=== PATIENT | female | born 1980 | race Hispanic/Latino ===

== ENCOUNTER 2017-12-20 02:27 | Observation (INO) | payer MEDICAID ==
[~2017-12-20] VITALS: Ht 160 cm; Wt 61.2 kg
[2017-12-20 02:45] VITALS: BP 119/75
[2017-12-20] MEDS ORDERED: LACTATED RINGERS 1000ML IV PRN (02:45)
[2017-12-20 03:12] LABS: APPEARANCE,URINE Clear (CLEAR); BILIRUBIN,URINE Negative (NEGATIVE); COLOR,URINE Yellow (YELLOW); GLUCOSE, URINE (UA) Negative (NEGATIVE); KETONES,URINE Negative (NEGATIVE); LEUKOCYTE ESTERASE ,URINE Negative (NEGATIVE); NITRATE,URINE Negative (NEGATIVE); OCCULT BLOOD,URINE Negative (NEGATIVE); PH,URINE 6.5 (5.0-8.0); PROTEIN,URINE Negative (NEGATIVE); UROBILINOGEN,URINE 0.2 mg/dL (0.2-1.0)
[2017-12-20] MEDS ORDERED: PREN-196 PO (03:23)
[2017-12-20] MEDS ORDERED: DIPH25 PO (03:23)
[2017-12-20] MEDS ORDERED: ACET-2743 PO (03:23)
== END 2017-12-20 03:45 | disposition home or self-care (01) ==
LOC: EDH 02:27 → LDH 02:28
PROVIDERS: ADMIT Obstetrics & Gynecology; ATTEND Obstetrics & Gynecology
DX: O26.893 Other specified pregnancy related conditions, third trimester (principal); R07.89 Other chest pain; Z3A.36 36 weeks gestation of pregnancy
CPT/HCPCS: 81003; 99285; G0378

== ENCOUNTER 2018-01-08 20:21 | Inpatient (IN) | payer MEDICAID ==
[~2018-01-08] VITALS: Ht 160 cm; Wt 62.6 kg
[~2018-01-08 20:21] MED LIST: ACET-2743 PO; DIPH25 PO; PREN-196 PO
[2018-01-08] MEDS ORDERED: OXYTOCIN-LR 20 UNITS/1000 ML 1,000 ML IV SCH (21:15)
[2018-01-08 21:24] LABS: APPEARANCE,URINE Clear (CLEAR); BILIRUBIN,URINE Negative (NEGATIVE); COLOR,URINE Yellow (YELLOW); GLUCOSE, URINE (UA) Negative (NEGATIVE); KETONES,URINE Negative (NEGATIVE); LEUKOCYTE ESTERASE ,URINE Negative (NEGATIVE); NITRATE,URINE Negative (NEGATIVE); OCCULT BLOOD,URINE Negative (NEGATIVE); PROTEIN,URINE Negative (NEGATIVE)
[2018-01-08] MEDS ORDERED: FLU VACC QS2017-18 36MOS UP/PF 60 MCG/0.5 ML ML IM ONE (22:00)
[2018-01-08 22:01] LABS: HEMATOCRIT 36.7 % (36-48); MEAN CORPUSCULAR HEMOGLOBIN 32.9 pg (27.0-33.0); MEAN CORPUSCULAR HGB CONC 35.8 g/dL (32.0-36.0); NUCLEATED RED BLOOD CELLS 0.1 % (0.0-0.19); PLATELET COUNT (AUTO) 150 K/uL (130-400); RED BLOOD CELL COUNT(AUTO) 3.99 MIL/uL (4.00-5.50); RED CELL DISTRIBUTION WIDTH 14.1 % (11.0-15.5); WHITE BLOOD COUNT (AUTO) 6.4 K/uL (4.8-10.8)
[2018-01-08] MEDS: LACTATED RINGERS 1000ML 1,000 ML IV PRN (22:14)
[2018-01-09] MEDS ORDERED: OXYTOCIN 10 USP UNITS/ML ONE ×3 (01:22→19:35)
[2018-01-09] MEDS ORDERED: LACTATED RINGERS 1000ML 1,000 ML IV ONE ×2 (01:22→17:53)
[2018-01-09] MEDS ORDERED: OXYTOCIN-LR 20 UNITS/1000 ML 1,000 ML IV SCH (02:00)
[2018-01-09] MEDS: LACTATED RINGERS 1000ML 1,000 ML IV PRN ×2 (06:09→15:22)
[2018-01-09] MEDS ORDERED: ACETAMINOPHEN 325 MG TAB ONE (08:58)
[2018-01-09] MEDS ORDERED: ACETAMINOPHEN 325 MG TAB PO SCH (09:00)
[2018-01-09] MEDS ORDERED: BUTORPHANOL TARTRATE 2 MG/ML IVP ONE (10:00)
[2018-01-09] MEDS ORDERED: BUTORPHANOL TARTRATE 2 MG/ML ONE (10:08)
[2018-01-09] MEDS ORDERED: EPHEDRINE SULFATE 50 MG/ML AMPULE IVP PRN (14:15)
[2018-01-09] MEDS ORDERED: NALOXONE HCL 0.4 MG/1 ML ML IV PRN (14:15)
[2018-01-09] MEDS ORDERED: LACTATED RINGERS 500 ML 500 ML IV PRN (14:15)
[2018-01-09] MEDS ORDERED: MEASLES/MUMPS/RUBELLA VACCINE, LIVE 0.5 ML/VIAL SQ PRN (18:00)
[2018-01-09] MEDS ORDERED: DIPH,PERTUSS(ACELL),TET VAC/PF 0.5 ML VIAL IM PRN (18:00)
[2018-01-09] MEDS: IBUPROFEN 600 MG TABLET PO PRN (19:40)
[2018-01-09 19:55] VITALS: BP 137/86
[2018-01-09] MEDS: DOCUSATE SODIUM 100 MG CAP PO SCH (21:12)
[2018-01-09 23:01] VITALS: BP 138/73
[2018-01-10 03:04] VITALS: BP 124/73
[2018-01-10] MEDS: IBUPROFEN 600 MG TABLET PO PRN ×3 (03:47→17:56)
[2018-01-10] MEDS ORDERED: LANOLIN 30GM OINTMENT TP PRN (04:00)
[2018-01-10] MEDS ORDERED: FLU VACC QS2017-18 36MOS UP/PF 60 MCG/0.5 ML ML IM ONE (06:30)
[2018-01-10 06:49] LABS: HEMATOCRIT 32.7 % (36-48); MEAN CORPUSCULAR HEMOGLOBIN 33.2 pg (27.0-33.0); MEAN CORPUSCULAR HGB CONC 35.7 g/dL (32.0-36.0); MEAN CORPUSCULAR VOLUME 93.1 fL (79-99); PLATELET COUNT (AUTO) 111 K/uL (130-400); RED BLOOD CELL COUNT(AUTO) 3.51 MIL/uL (4.00-5.50); RED CELL DISTRIBUTION WIDTH 14.1 % (11.0-15.5); WHITE BLOOD COUNT (AUTO) 10.5 K/uL (4.8-10.8)
[2018-01-10 07:29] VITALS: BP_SYST 126; BP_SYST 94; BP_DIAS 61; BP_DIAS 90
[2018-01-10 07:32] LABS: HEPATITIS Bs ANTIGEN SCREEN P Negative (Negative)
[2018-01-10] MEDS: DOCUSATE SODIUM 100 MG CAP PO SCH (08:31)
[2018-01-10 11:22] VITALS: BP 116/81
[2018-01-10 15:40] VITALS: BP 125/80
== END 2018-01-10 18:30 | disposition home or self-care (01) | DRG 560 ==
LOC: LDH 20:21 → WSH 01-09 19:55
PROVIDERS: ADMIT Obstetrics & Gynecology; ATTEND Obstetrics & Gynecology
PROC: 10E0XZZ Delivery of Products of Conception, External Approach (ICD-10-PCS; principal; 2018-01-09)
PROC: 0UQGXZZ Repair Vagina, External Approach (ICD-10-PCS; 2018-01-09)
PROC: 3E0R3BZ Introduction of Anesthetic Agent into Spinal Canal, Percutaneous Approach (ICD-10-PCS; 2018-01-09)
PROC: 00HU33Z Insertion of Infusion Device into Spinal Canal, Percutaneous Approach (ICD-10-PCS; 2018-01-09)
PROC: 10907ZC Drainage of Amniotic Fluid, Therapeutic from Products of Conception, Via Natural or Artificial Opening (ICD-10-PCS; 2018-01-09)
PROC: 3E0234Z Introduction of Serum, Toxoid and Vaccine into Muscle, Percutaneous Approach (ICD-10-PCS; 2018-01-09)
PROC: 3E0234Z Introduction of Serum, Toxoid and Vaccine into Muscle, Percutaneous Approach (ICD-10-PCS; 2018-01-09)
PROC: 3E0134Z Introduction of Serum, Toxoid and Vaccine into Subcutaneous Tissue, Percutaneous Approach (ICD-10-PCS; 2018-01-09)
DX: O70.9 Perineal laceration during delivery, unspecified (principal); Z23 Encounter for immunization; Z37.0 Single live birth; Z3A.39 39 weeks gestation of pregnancy
CPT/HCPCS: 36415; 81003; 85027; 86592; 86850; 86900; 86901; 87340; 90715; A4314; J0595; J2590; J7120; Q2038

== ENCOUNTER 2019-04-14 19:31 | Emergency (ER) | payer MEDICAID | END 2019-04-14 20:04 | disposition home or self-care (01) | LOC: EDH 19:31 | DX: L73.9 Follicular disorder, unspecified (principal) ==